=== PATIENT | female | born 1990 | race African-American/Black ===

== ENCOUNTER 2017-05-31 08:58 | Emergency (ER) | payer MEDICAID ==
[~2017-05-31] VITALS: Ht 154.9 cm; Wt 90.5 kg
[2017-05-31 09:00] VITALS: BP 152/84; PULSE 95; RESP 14; TEMP 97.9; O2SAT 95
--- NOTE | 2017-05-31 09:15 | PD ---
HPI Chief Complaint: [facility] Problem/Complaint Time Seen by Provider: 09:13 Travel History International Travel<30 days: No Contact w/Intl Traveler<30days: No Traveled to known affect area: No History of Present Illness HPI 26-year-old female patient with previous history of irregular menses, hypothyroidism, presents to the ER today because she states that she has had 32 days of vaginal bleeding. She states that it first started out light like a regular menses but in the last 10 days has become much heavier, using multiple pads per day, at the same time, and having abdominal cramping pains. She states that lately she has been getting lightheaded as well. She denies any fevers or any other issues. Modifying Factors: None Associated Signs & Symptoms: 32 days of heavy vaginal bleeding Risk Factors: None PFSH Past Medical History ?: Not LMP: now Social History Tobacco Use: No Allergies-Medications (Allergen,Severity, Reaction): Coded Allergies: Sulfa (Sulfonamide Antibiotics) (Verified Allergy, Severe, hives, 05/31/17 ) n/v cefaclor (Verified Allergy, Unknown, hives, 05/31/17) erythromycin base (Verified Allergy, Unknown, hives, 05/31/17) Reported Meds & Prescriptions Reported Meds & Active Scripts Active No Active Prescriptions or Reported Medications Review of Systems Except as stated in HPI: all other systems reviewed are Neg Physical Exam Narrative GENERAL: Well-developed young -[place] female patient currently in mild distress. Awake and oriented 3. SKIN: Focused skin assessment warm/dry. HEAD: Atraumatic. Normocephalic. EYES: Pupils equal and round. No scleral icterus. No injection or drainage. ENT: No nasal bleeding or discharge. Mucous membranes pink and moist. NECK: Trachea midline. No JVD. CARDIOVASCULAR: Regular rate and rhythm. No murmur appreciated. RESPIRATORY: No accessory muscle use. Clear to auscultation. Breath sounds equal bilaterally. GASTROINTESTINAL: Abdomen soft, non-tender, nondistended. Hepatic and splenic margins not palpable. MUSCULOSKELETAL: No obvious deformities. No clubbing. No cyanosis. No edema. NEUROLOGICAL: Awake and alert. No obvious cranial nerve deficits. Motor grossly within normal limits. Normal speech. PSYCHIATRIC: Appropriate mood and affect; insight and judgment normal. Data Data Last Documented VS Vital Signs Date Time Temp Pulse Resp B/P (MAP) Pulse Ox O2 Delivery O2 Flow Rate FiO2 05/31/17 09:14 18 05/31/17 09:00 97.9 95 152/84 (106) 95 Orders Orders Complete Blood Count With Diff (05/31/17 09:10) Type And Screen (05/31/17 09:10) Ed Urine Pregnancytest Poc (05/31/17 09:10) Labs Laboratory Tests Test 05/31/17 09:27 White Blood Count 7.5 TH/MM3 Red Blood Count 4.20 MIL/MM3 Hemoglobin 12.2 GM/DL Hematocrit 36.7 % Mean Corpuscular Volume 87.3 FL Mean Corpuscular Hemoglobin 29.0 PG Mean Corpuscular Hemoglobin Concent 33.2 % Red Cell Distribution Width 13.8 % Platelet Count 378 TH/MM3 Mean Platelet Volume 7.5 FL Neutrophils (%) (Auto) 53.7 % Lymphocytes (%) (Auto) 34.2 % Monocytes (%) (Auto) 8.6 % Eosinophils (%) (Auto) 2.6 % Basophils (%) (Auto) 0.9 % Neutrophils # (Auto) 4.0 TH/MM3 Lymphocytes # (Auto) 2.6 TH/MM3 Monocytes # (Auto) 0.6 TH/MM3 Eosinophils # (Auto) 0.2 TH/MM3 Basophils # (Auto) 0.1 TH/MM3 CBC Comment DIFF FINAL Differential Comment MDM Medical Decision Making Medical Screen Exam Complete: Yes Emergency Medical Condition: Yes Medical Record Reviewed: Yes Differential Diagnosis Dysfunctional uterine bleeding versus ectopic versus threatened AB Narrative Course Lab work shows that she is not . H&H is stable. At this point, my plan would be to release the patient would follow-up to [facility]. We will give her OCP and have her follow-up. Return for any worsening in bleeding, pain, and as needed. The plan has been discussed with her and she states understanding. Diagnosis Primary Impression: Dysfunctional uterine bleeding Med/Other Pt SpecificInfo: Prescription(s) given Scripts Norethindrone-Ethinyl Estradiol (Ortho-Novum ) 1-35 Mg-Mcg Tab 1 TAB PO DAILY for Control, #1 PACK 0 Refills Prov: Millie Lemus MD 05/31/17 Disposition: 01 DISCHARGE HOME Condition: Stable Millie Lemus MD May 31, 2017 09:15
[2017-05-31 09:43] LABS: BASOPHIL # 0.1 TH/MM3 (0-0.2); BASOPHIL % 0.9 % (0.0-2.0); EOSINOPHIL # 0.2 TH/MM3 (0-0.4); EOSINOPHIL % 2.6 % (0.0-4.0); HEMATOCRIT 36.7 % (35.0-46.0); HEMOGLOBIN 12.2 GM/DL (11.6-15.3); LYMPH % 34.2 % (9.0-44.0); LYMPHOCYTE # 2.6 TH/MM3 (1.0-4.8); MEAN CELL VOLUME 87.3 FL (80.0-100.0); MEAN CORPUSCULAR HGB CONC 33.2 % (32.0-36.0); MEAN PLATELET VOLUME 7.5 FL (7.0-11.0); MONO % 8.6 % (0.0-8.0); MONOCYTE # 0.6 TH/MM3 (0-0.9); NEUT % 53.7 % (16.0-70.0); PLATELET COUNT 378 TH/MM3 (150-450); RED CELL DISTRIBUTION WIDTH 13.8 % (11.6-17.2); WHITE BLOOD COUNT 7.5 TH/MM3 (4.0-11.0)
[2017-05-31] MEDS ORDERED: ORTH1TAB PO (10:07)
== END 2017-05-31 10:49 | disposition home or self-care (01) ==
LOC: NEPD 08:58
DX: N93.8 Other specified abnormal uterine and vaginal bleeding (principal); R42 Dizziness and giddiness; Z88.2 Allergy status to sulfonamides; Z88.1 Allergy status to other antibiotic agents
CPT/HCPCS: 84703; 85025; 86850; 86900; 86901; 99284